=== PATIENT | male | born 1980 | race Hispanic/Latino ===

== ENCOUNTER 2021-04-25 15:03 | Emergency (ER) | payer SELFPAY ==
[2021-04-25 15:57] LABS: Urine Blood Trace-intact (Negative); Urine Glucose Negative (Negative); Urine Protein 2+ (Negative); Urine Specific Gravity >=1.030 (1.005-1.030); Urine pH 5.5 (5.0-7.0)
[2021-04-25 15:58] LABS: Absolute Lymphocytes (CBC) 2.2 K/uL (0.7-4.9); Basophils % 0.9 % (0-1.3); Lymphocytes % 22.9 % (15.3-44.8); MPV 6.9 fL (7.6-11.3); RBC Red Blood Cell Count 4.62 M/uL (4.33-5.43)
[2021-04-25 16:05] LABS: Protime INR 1.09
[2021-04-25 16:23] LABS: Barbiturates NEGATIVE (NEGATIVE); Benzodiazepines NEGATIVE (NEGATIVE); Cocaine POSITIVE (NEGATIVE); METHAMPHETAM NEGATIVE (NEGATIVE); Methadone NEGATIVE (NEGATIVE); Opiates NEGATIVE (NEGATIVE); Phencyclidine NEGATIVE (NEGATIVE); THC Cannibis NEGATIVE (NEGATIVE)
[2021-04-25 16:23] LABS: ALT/SGPT 38 U/L (12-78); AST/SGOT 20 U/L (15-37); Alkaline Phosphatase 86 U/L (45-117); BUN Blood Urea Nitrogen 18 mg/dL (7-18); Bicarbonate 29 mmol/L (21-32); Bilirubin Direct 0.2 mg/dL (0-0.2); Bilirubin Total 0.5 mg/dL (0.2-1.0); Glucose Level 102 mg/dL (74-106); Potassium 3.4 mmol/L (3.5-5.1); Sodium Level 141 mmol/L (136-145)
--- NOTE | 2021-04-25 16:46 | ER ---
Nurse's Notes [facility] Name: Jesus Garza Age: 40 yrs Sex: Male : 1980 Arrival Date: 04/25/2021 Time: 15:12 Bed 17 Private MD: Diagnosis: Suicidal ideations;Adjustment disorder with depressed mood;Adjustment disorder with mixed anxiety and depressed mood;Abuse of other non-psychoactive substances;Hypokalemia;Cocaine abuse Presentation: 04/25 15:10 Chief complaint: Patient states: Suicidal Ideation: Patient presents to ED via [place] [address] [employer] - report received that patient has verbalized suicidal ideation with a plan to his family - plan to hang himself on a tree tonight. Patient currently going through a separation with his spouse and has verbalized multiple times to family members that he wants to kill himself. 15:10 Coronavirus screen: Vaccine status: Patient reports being unvaccinated. Ebola Screen: 2 Patient negative for fever greater than or equal to 101.5 degrees Fahrenheit, and additional compatible Ebola Virus Disease symptoms Patient denies exposure to infectious person. Patient denies travel to an Ebola-affected area in the 21 days before illness onset. No symptoms or risks identified at this time. Initial Sepsis Screen: Does the patient meet any 2 criteria? No. Patient's initial sepsis screen is negative. Does the patient have a suspected source of infection? No. Patient's initial sepsis screen is negative. Risk Assessment: Do you want to hurt yourself or someone else? Patient reports desire/thoughts of hurting themselves or someone else. Provider notified. Onset of symptoms was April 25, 2021. 15:10 Method Of Arrival: Law Enforcement: [facility] 15:10 Acuity: SANDEE 2 2 Triage Assessment: 15:47 General: Appears in no apparent distress. well groomed, well developed, Behavior is 2 calm, cooperative, appropriate for age. Pain: Denies pain. Historical: - Allergies: 15:47 No Known Allergies; 2 - Immunization history:: Adult Immunizations up to date, Client reports having NOT received the Covid vaccine. - Social history:: Smoking status: Patient denies any tobacco usage or history of. Patient uses Patient/guardian denies using alcohol, street drugs, IV drugs. - Family history:: not pertinent. Vital Signs: 15:10 BP 138 / 95; Pulse 85; Resp 18; Temp 98.2; Pulse Ox 100% on R/A; sl2 15:49 BP 136 / 88; Pulse 86; Resp 18; Temp 98.4; Pulse Ox 100% on R/A; Weight 68.04 kg; 5 Height 5 ft. 9 in. (175.26 cm); Pain 0/10; 17:00 BP 132 / 78; Pulse 85; Resp 18; Pulse Ox 99% ; sl2 15:49 Body Mass Index 22.15 (68.04 kg, 175.26 cm) [facility] ED Course: 15:12 Patient arrived in ED. em1 15:14 Kenney Bettencourt MD is Attending Physician. [facility] 15:42 Janna Garcia, CAMILO is Primary Nurse. sl2 15:47 Triage completed. 2 15:56 Urine Dipstick-Ancillary Sent. 5 15:56 COVID-19 SARS RT PCR (Document "Date of Onset" if Symptomatic) Sent. [facility] 15:57 CBC with Diff Sent. 5 15:57 Basic Metabolic Panel Sent. 5 15:57 Acetaminophen Sent. 5 15:57 ETOH Level Sent. 5 15:57 Hepatic Function Sent. [facility] 15:57 PT-INR Sent. [facility] 15:57 Ptt, Activated Sent. [facility] 15:57 Salicylate Sent. [facility] 15:57 Urine Drug Screen Sent. [facility] 15:57 Initial lab(s) drawn, by mt, sent to lab. Urine collected: clean catch specimen, tea [facility] colored, EKG done, by ED staff, reviewed by Kenney Bettencourt MD COVID swab sent to lab. Inserted saline lock: 20 gauge in right antecubital area, using aseptic technique. Blood collected. 15:58 Patient has correct armband on for positive identification. Placed in gown. Bed in low mh5 position. Side rails up X 1. Warm blanket given. Pulse ox on. NIBP on. 16:44 Josh De Leon MD is Referral Physician. [facility] Administered Medications: 17:14 Not Given (Patient Refused): NS 0.9% 1000 ml IV at 1 bolus Per protocol; 1000 mL bolus sl2 17:16 Drug: Potassium Effervescent Tablet 25 mEq Route: PO; sl2 Outcome: 16:45 Discharge ordered by MD. holm 17:42 Discharged to home with family. sl2 17:42 Condition: stable 17:42 Discharge instructions given to patient, family, Instructed on discharge instructions, follow up and referral plans. Demonstrated understanding of instructions, follow-up care. 17:43 Patient left the ED. sl2 Signatures: Kenney Bettencourt MD MD cha Martinez, Eric em1 Martinez, Maria 5 Janna Garcia, RN RN sl2 Corrections: (The following items were deleted from the chart) 16:00 15:49 BP 136 / 88; Pulse 86bpm; Resp 18bpm; Pulse Ox 100% RA; Temp 98.4F; sl2 5
--- NOTE | 2021-04-25 16:46 | EDPHYS ---
Physician Documentation [facility] Name: Jesus Garza Age: 40 yrs Sex: Male : 1980 Arrival Date: 04/25/2021 Time: 15:12 Bed 17 Private MD: ED Physician Kenney Bettencourt HPI: 04/25 16:20 This 40 yrs old Male presents to ER via Law Enforcement with complaints of alta suicidal ideation. 16:23 The patient presents to the emergency department with situation , causing separation alta with has him upset. Onset: The symptoms/episode began/occurred today. Past psychiatric history: Prior diagnosis: no previous psychiatric diagnosis known, Psychiatric medications include: none. Associated signs and symptoms: Pertinent positives; suicide ideation. Severity of symptoms: At their worst the symptoms were mild in the emergency department the symptoms have improved moderately. The patient has not experienced similar symptoms in the past. Historical: - Allergies: 15:47 No Known Allergies; sl2 - Immunization history:: Adult Immunizations up to date, Client reports having NOT received the Covid vaccine. - Social history:: Smoking status: Patient denies any tobacco usage or history of. Patient uses Patient/guardian denies using alcohol, street drugs, IV drugs. - Family history:: not pertinent. ROS: 16:23 Constitutional: Negative for fever, chills, and weight loss, Eyes: Negative for injury, alta pain, redness, and discharge, ENT: Negative for injury, pain, and discharge, Neck: Negative for injury, pain, and swelling, Cardiovascular: Negative for chest pain, palpitations, and edema, Respiratory: Negative for shortness of breath, cough, wheezing, and pleuritic chest pain, Abdomen/GI: Negative for abdominal pain, nausea, vomiting, diarrhea, and constipation, Back: Negative for injury and pain, : Negative for injury, bleeding, discharge, and swelling, MS/Extremity: Negative for injury and deformity, Skin: Negative for injury, rash, and discoloration, Neuro: Negative for headache, weakness, numbness, tingling, and seizure, Allergy/Immunology: Negative for hives, rash, and allergies, Endocrine: Negative for neck swelling, polydipsia, polyuria, polyphagia, and marked weight changes, Hematologic/Lymphatic: Negative for swollen nodes, abnormal bleeding, and unusual bruising. 16:23 Psych: Positive for depression, suicidal ideation. Exam: 16:23 Constitutional: This is a well developed, well nourished patient who is awake, alert, alta and in no acute distress. Head/Face: Normocephalic, atraumatic. Eyes: Pupils equal round and reactive to light, extra-ocular motions intact. Lids and lashes normal. Conjunctiva and sclera are non-icteric and not injected. Cornea within normal limits. Periorbital areas with no swelling, redness, or edema. ENT: Nares patent. No nasal discharge, no septal abnormalities noted. Tympanic membranes are normal and external auditory canals are clear. Oropharynx with no redness, swelling, or masses, exudates, or evidence of obstruction, uvula midline. Mucous membranes moist. Neck: Trachea midline, no thyromegaly or masses palpated, and no cervical lymphadenopathy. Supple, full range of motion without nuchal rigidity, or vertebral point tenderness. No Meningismus. Chest/axilla: Normal chest wall appearance and motion. Nontender with no deformity. No lesions are appreciated. Cardiovascular: Regular rate and rhythm with a normal S1 and S2. No gallops, murmurs, or rubs. Normal PMI, no JVD. No pulse deficits. Respiratory: Lungs have equal breath sounds bilaterally, clear to auscultation and percussion. No rales, rhonchi or wheezes noted. No increased work of breathing, no retractions or nasal flaring. Abdomen/GI: Soft, non-tender, with normal bowel sounds. No distension or tympany. No guarding or rebound. No evidence of tenderness throughout. Back: No spinal tenderness. No costovertebral tenderness. Full range of motion. Skin: Warm, dry with normal turgor. Normal color with no rashes, no lesions, and no evidence of cellulitis. MS/ Extremity: Pulses equal, no cyanosis. Neurovascular intact. Full, normal range of motion. Neuro: Awake and alert, GCS 15, oriented to person, place, time, and situation. Cranial nerves II-XII grossly intact. Motor strength 5/5 in all extremities. Sensory grossly intact. Cerebellar exam normal. Normal gait. Psych: Awake, alert, with orientation to person, place and time. Behavior, mood, and affect are within normal limits. 16:23 Psych: Behavior/mood is pleasant, cooperative, Affect is calm, Oriented to person, place, time, Patient has no thoughts/intents to harm self or others. Judgement / Insight is normal. Memory is normal. Delusions/hallucinations are not present. 16:29 ECG was reviewed by the Attending Physician. [facility] Vital Signs: 15:10 BP 138 / 95; Pulse 85; Resp 18; Temp 98.2; Pulse Ox 100% on R/A; sl2 15:49 BP 136 / 88; Pulse 86; Resp 18; Temp 98.4; Pulse Ox 100% on R/A; Weight 68.04 kg; 5 Height 5 ft. 9 in. (175.26 cm); Pain 0/10; 17:00 BP 132 / 78; Pulse 85; Resp 18; Pulse Ox 99% ; sl2 15:49 Body Mass Index 22.15 (68.04 kg, 175.26 cm) [facility] MDM: 15:14 Patient medically screened. [facility] 16:25 Differential diagnosis: acute psychotic break, depression. Data reviewed: vital signs, [facility] nurses notes, EMS record, lab test result(s), EKG. Data interpreted: pvc monitor: not applicable for this patient encounter. rate is 86 beats/min, Pulse oximetry: on room air is 100 %. Test interpretation: by ED physician or midlevel provider: ECG. Counseling: I had a detailed discussion with the patient and/or guardian regarding: the historical points, exam findings, and any diagnostic results supporting the discharge/admit diagnosis, lab results, radiology results, the need for outpatient follow up, for definitive care, a psychiatrist. 04/25 15:14 Order name: Acetaminophen; Complete Time: 16:44 [facility] 04/25 15:14 Order name: Basic Metabolic Panel; Complete Time: 16:44 [facility] 04/25 15:14 Order name: CBC with Diff; Complete Time: 16:44 [facility] 04/25 15:14 Order name: ETOH Level; Complete Time: 16:44 [facility] 04/25 15:14 Order name: Hepatic Function; Complete Time: 16:44 [facility] 04/25 15:14 Order name: PT-INR; Complete Time: 16:44 [facility] 04/25 15:14 Order name: Ptt, Activated; Complete Time: 16:44 [facility] 04/25 15:14 Order name: Salicylate; Complete Time: 16:44 [facility] 04/25 15:14 Order name: Urine Drug Screen; Complete Time: 16:44 [facility] 04/25 15:14 Order name: EKG; Complete Time: 15:15 [facility] 04/25 15:42 Order name: COVID-19 SARS RT PCR (Document "Date of Onset" if Symptomatic) [email or web address] 04/25 15:55 Order name: Urine Dipstick-Ancillary; Complete Time: 16:44 EDMS 04/25 15:14 Order name: EKG - Nurse/Tech; Complete Time: 15:56 [facility] 04/25 15:14 Order name: IV Saline Lock; Complete Time: 15:57 [facility] 04/25 15:14 Order name: Labs collected and sent; Complete Time: 15:57 [facility] 04/25 15:14 Order name: Suicide Precautions; Complete Time: 15:49 [facility] 04/25 15:14 Order name: Suicide Screening ([place]) [facility] 04/25 15:14 Order name: Urine Dipstick-Ancillary (obtain specimen); Complete Time: 15:57 [facility] EC:29 Rate is 72 beats/min. Rhythm is regular. QRS [place] is Normal. UT interval is normal. QRS alta interval is normal. QT interval is normal. No Q waves. T waves are Normal. No ST changes noted. Clinical impression: Normal ECG and No evidence of ischemia. Interpreted by me. Reviewed by me. Administered Medications: 17:14 Not Given (Patient Refused): NS 0.9% 1000 ml IV at 1 bolus Per protocol; 1000 mL bolus sl2 17:16 Drug: Potassium Effervescent Tablet 25 mEq Route: PO; sl2 Disposition Summary: 04/25/21 16:45 Discharge Ordered Location: Home alta Problem: new alta Symptoms: have improved alta Condition: Stable alta Diagnosis - Suicidal ideations alta - Adjustment disorder with depressed mood alta - Adjustment disorder with mixed anxiety and depressed mood alta - Abuse of other non-psychoactive substances alta - Hypokalemia alta - Cocaine abuse alta Followup: alta - With: Private Physician - When: 2 - 3 days - Reason: Recheck today's complaints, Continuance of care, Re-evaluation by your physician Followup: alta - With: - When: 2 - 3 days - Reason: Recheck today's complaints, Re-evaluation by your physician Discharge Instructions: - Discharge Summary Sheet alta - Adjustment Disorder, Adult alta - Suicidal Feelings: How to Help Yourself alta - Potassium Content of Foods alta - Substance Use Disorder alta - Cocaine Use Disorder alta - Helping Someone Who is Suicidal alta - Adjustment Disorder, Pediatric alta - Hypokalemia alta - Illegal Drug Use Information, Adult alta - Supporting Someone With Substance Use Disorder alta Forms: - Medication Reconciliation Form alta - Thank You Letter alta - Antibiotic Education atla - Prescription Opioid Use alta Signatures: Dispatcher [employer] Kenney Bartlett MD MD cha Landell, Sophia RN RN sl2
[2021-04-25] MEDS ORDERED: POTASSIUM 25 MEQ EFFERV TAB ONE (17:15)
[2021-04-25 17:50] VITALS: TEMP 98.4
[2021-04-25 17:52] VITALS: BP 132/78; O2SAT 99
== END 2021-04-25 17:43 | disposition home or self-care (01) ==
LOC: ER 15:03
DX: F43.23 Adjustment disorder with mixed anxiety and depressed mood (principal); E87.6 Hypokalemia; F14.10 Cocaine abuse, uncomplicated; F55.8 Abuse of other non-psychoactive substances; Z20.822 Contact with and (suspected) exposure to COVID-19
CPT/HCPCS: 36415; 80048; 80076; 80307; 80320; 80329; 81003; 85025; 85610; 85730; 93005; 99284; U0003